=== PATIENT | male | born 1935 | race Caucasian/White ===

== ENCOUNTER 2018-05-01 13:56 | Outpatient (CLI) | payer MEDICARE, BC ==
--- NOTE | 2018-05-01 15:38 | RAD ---
LUMBAR SPINE 3 VIEWS: Date: 05/01/18 HISTORY: Spinal stenosis, low back pain, bilateral leg numbness. FINDINGS/IMPRESSION: Lateral views of the lumbar spine were obtained in neutral, flexion, and extension. Multilevel degenerative changes present. No compression fracture or subluxation seen. No significant change in alignment is noted on flexion or extension. POS: [facility]
--- NOTE | 2018-05-01 18:34 | MRI ---
MRI LUMBAR SPINE PRE AND POST CONTRAST: HISTORY: Spinal stenosis. Numbness of legs for several months. TECHNIQUE: Multiplanar, multisequence pre and post contrast enhanced MRI of the lumbar spine obtained. FINDINGS: Images demonstrate bilateral renal areas of cystic density, possibly representing renal cortical cyst s. Correlate with sonography. T12-L1: Unremarkable. L1-L2: Disk desiccation is seen. There is a broad-based disk bulge with bilateral facet and ligamen jhony flavum hypertrophy. This results in a minimal but not significant degree of central and lateral recess stenosis. The neural foramen are patent. L2-L3: Disk desiccation is seen. There is a broad-based disk bulge with bilateral severe facet and ligamentum flavum hypertrophy, resulting in moderate to severe central and lateral recess stenosis. Mild to moderate bilateral neural foraminal narrowing is seen. L3-L4: Disk desiccation is seen. There is a broad-based disk bulge with bilateral facet and ligamen jhony flavum hypertrophy. Laminotomy changes are seen at this level. There is a moderate degree of ce ntral and lateral recess stenosis due to the facet hypertrophy and ligamentum flavum hypertrophy, as well as the broad-based disk bulge. There is a fatty filum terminale. L4-L5: Disk desiccation is seen. There is a broad-based disk bulge with bilateral facet hypertrophy , resulting in a moderate degree of central and lateral recess stenosis. There is moderate bilateral neural foraminal narrowing seen, due to the facet hypertrophy. L5-S1: There is bilateral facet hypertrophy seen. Mild central and lateral recess stenosis is seen. Moderate bilateral neural foraminal narrowing is seen. IMPRESSION: L3 and L4 laminotomy changes. There is multilevel facet hypertrophy with L2-L3, L3-L4, and L4-L5 lida tral and lateral recess stenosis seen. POS: [facility]
== END 2018-05-01 13:57 | disposition home or self-care (01) ==
LOC: SCSMRI 13:56
PROVIDERS: ATTEND Neurological Surgery
DX: M48.061 Spinal stenosis, lumbar region without neurogenic claudication (principal); M47.896 Other spondylosis, lumbar region
CPT/HCPCS: 72100; 72158; 82565

== ENCOUNTER 2018-10-18 10:01 | Outpatient (CLI) | payer MEDICARE, BC ==
[2018-10-18 11:30] LABS: Hemoglobin 14.4 g/dL (14.0-18.0); Mean Corpuscular HGB CONC 32.7 g/dL (32.0-36.0); Mean Corpuscular Hemoglobin 29.7 pg (27.0-31.0); Mean Corpuscular Volume 90.8 fL (78.0-98.0); Mean Platelet Volume 7.5 fL (7.4-10.4); Platelet Count 201 thou/uL (130-400); RBC Distribution Width 12.4 % (11.5-14.5); Red Blood Cell (RBC) Count 4.85 mill/uL (4.70-6.10); White Blood Cell (WBC) Count 7.2 thou/uL (4.8-10.8)
[2018-10-18 11:36] LABS: INR-International Normal Ratio 1.1; PTT 32.8 SEC (22.9-36.1); Prothrombin Time 13.9 SEC (12.0-14.7)
[2018-10-18 11:39] LABS: Anion Gap 11 mmol/L (10-20); BUN (Urea Nitrogen) 22 mg/dL (8.4-25.7); Calc. Creatinine Clearance 0 mL/min (70-130); Calcium 10.5 mg/dL (7.8-10.44); Carbon Dioxide 26 mmol/L (23-31); Chloride 110 mmol/L (98-107); Estimated GFR-MDRD 59; Glucose 99 mg/dL (83-110); Potassium 4.3 mmol/L (3.5-5.1); Sodium 143 mmol/L (136-145)
--- NOTE | 2018-10-19 11:36 | EKG ---
Test Reason : Blood Pressure : / mmHG Vent. Rate : 052 BPM Atrial Rate : 052 BPM P-R Int : 198 ms QRS Dur : 092 ms QT Int : 416 ms P-R-T Axes : 009 -42 -05 degrees QTc Int : 386 ms Sinus bradycardia Left axis deviation Voltage criteria for left ventricular hypertrophy Abnormal ECG Confirmed by CHRISTOPHE CARRERO ([id number]) on 10/19/2018 11:36:07 AM Referred By: GUSTAVO Confirmed By:CHRISTOPHE CARRERO
== END 2018-10-18 10:02 | disposition home or self-care (01) ==
LOC: LABBT 10:01
PROVIDERS: ATTEND Neurological Surgery
DX: Z01.818 Encounter for other preprocedural examination (principal); M48.062 Spinal stenosis, lumbar region with neurogenic claudication
CPT/HCPCS: 80048; 85027; 85610; 85730; 93005; 93010

== ENCOUNTER 2018-10-24 05:39 | Inpatient (IN) | payer MEDICARE, BC ==
[2018-10-18 10:25] VITALS: BMI 26.3
--- NOTE | 2018-10-19 12:21 | HP ---
HISTORY OF PRESENT ILLNESS: Mr. Kemp is a very pleasant 83-year-old male, who reports recently moved to the area. He has had previous decompressive surgery in the lumbar spine. Reports to our office for evaluation of lumbar back pain as well as bilateral numbness in his feet and calves. He reports that his previous surgery was about 5 years ago in [place], which he had good success from. The patient states the pain has returned in the lumbar area and is similar to his pain previously. States it is the beltline pain and just below, it does not go down into his hips, thighs, or legs. The patient states that, several months ago, he started to have numbness which was in the balls of his feet, worse on the left than the right and has progressed up into his calves. The patient states that he is an active person. He fishes, hunts, regularly goes to fitness classes and exercise. However, he is worried that the numbness is going to cause him to have balance issues. The patient has had epidural steroid injections within the last 6 months, which gave him about a month of relief. He denies physical therapy, however, he does stretching and core exercises on his own. Numbness is worse down the balls of his feet, medial top of his foot and calves. He would describe numbness is equal in area on both legs. Denies diabetes, chemotherapy, or radiation. He is on lithium. REVIEW OF SYSTEMS: A 10-point review of systems has been completed and is negative other than stated in the above HPI. PAST MEDICAL HISTORY: Gout, hypertension. PAST SURGICAL HISTORY: Tonsillectomy, cataracts, and lumbar laminectomy in 2013. FAMILY HISTORY: Father is , diagnosed with heart disease. Mother is . SOCIAL HISTORY: The patient states that he uses alcohol and is sexually active. MEDICATIONS: 1. Atenolol. 2. Lisinopril. 3. Amlodipine. 4. Atorvastatin. 5. Aspirin 81 mg. 6. Calcium with vitamin D. 7. Fish oil. 8. Glucosamine. ALLERGIES: NO KNOWN DRUG ALLERGIES. PHYSICAL EXAMINATION: CONSTITUTIONAL: Well appearing, well nourished, alert. NEUROLOGIC: Mental status; oriented to time, place, person. Normal attention span and concentration. Speech, spontaneous and fluent. Comprehension intact. Content appropriate. Normal fund of knowledge. Cranial nerves, grossly intact. Motor exam; muscle strength normal in lower extremities. Muscle tone and bulk, normal in lower extremities. 5/5 bilateral strength in IP, KE, KF, DF, PF, EHL, no radiculopathy. Negative single leg raise. Rotation of bilateral hips normal. Nontender to palpation. Deep tendon reflex; 2+ patellar, 2+ Achilles. Sensory, decreased sensation, bilateral balls of feet, top of feet. Gait and station, sit to stand normal, normal gait. RESPIRATIONS: Normal work of breathing on room air. SKIN: No rashes or lesions on exposed skin. PSYCHIATRIC: Normal mood and affect. IMAGING STUDIES: MRI shows lateral recess stenosis of L5-S1, lateral recess and canal stenosis at L2-L3, L3-L4, L4-L5. Flexion-extension, no instability is noted on x-ray. EMG/nerve conduction, sensory, motor, polyneuropathy workup for causation is pending. 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 Dr. Lundberg has offered surgery. The patient has been consented. The patient states he understands risks and is willing to proceed with the surgery. Job ID: [id number]
[2018-10-24] MEDS ORDERED: Bupivacaine HCl 0.5%/Epinephrine 1:200,000/PF 30 ml Vial ONE (06:25)
[2018-10-24] MEDS ORDERED: Sodium Chloride 0.9% 20 ML ONE (06:25)
[2018-10-24] MEDS ORDERED: Thrombin 5000 UNITS/5 ML VIAL ONE ×2 (06:25→07:59)
[2018-10-24] MEDS ORDERED: Albumin 5% 500 ML ONE (06:30)
[2018-10-24] MEDS ORDERED: Fentanyl 100 MCG/2 ML VIAL ONE ×3 (07:07→14:26)
[2018-10-24] MEDS ORDERED: Rocuronium Bromide 10 MG/ML (10ML VIAL) ONE (11:04)
[2018-10-24] MEDS ORDERED: ePHEDrine 50 MG/ML VIAL ONE (11:04)
[2018-10-24] MEDS ORDERED: PROPOFOL 200 MG/20 ML VIAL ONE (11:04)
[2018-10-24] MEDS ORDERED: Ondansetron PF 4 MG/2 ML Vial ONE (11:04)
[2018-10-24] MEDS ORDERED: PHENYLEPHRINE-NS 100 MCG/ML 10 ML SYRINGE ONE (11:04)
[2018-10-24] MEDS ORDERED: Lidocaine 1% PF 5 ML VIAL ONE (11:04)
[2018-10-24] MEDS ORDERED: Dexamethasone 20 MG/5 ML VIAL ONE (11:04)
[2018-10-24] MEDS ORDERED: Glycopyrrolate 0.2 MG/ML 5 ML SYRINGE ONE (11:04)
[2018-10-24] MEDS ORDERED: Sodium Chloride 0.9% 10 ML ONE (11:28)
[2018-10-24] MEDS ORDERED: Acetaminophen/Codeine 30-300mg Tablet PO PRN ×2 (12:34)
[2018-10-24] MEDS ORDERED: Promethazine 25 MG TAB PO PRN (12:34)
[2018-10-24] MEDS ORDERED: Milk Of Magnesia 30 ML UDCUP PO PRN (12:34)
[2018-10-24] MEDS ORDERED: diphenhydrAMINE 50 MG/ML VIAL IVP PRN (12:34)
[2018-10-24] MEDS ORDERED: diphenhydrAMINE 25 MG CAP PO PRN (12:34)
[2018-10-24] MEDS ORDERED: Ondansetron PF 4 MG/2 ML Vial IVP PRN (12:34)
[2018-10-24] MEDS ORDERED: Acetaminophen 325 MG TAB PO PRN (12:34)
[2018-10-24] MEDS ORDERED: Promethazine HCl 25 MG/ML VIAL IM PRN ×2 (12:34→12:56)
[2018-10-24] MEDS ORDERED: Mag-Al 1200 mg/1200 mg/30 ML UDCUP PO PRN (12:34)
[2018-10-24] MEDS ORDERED: tiZANidine HCl 4 MG TAB PO PRN (12:34)
[2018-10-24] MEDS ORDERED: Bisacodyl 10 MG SUPP PR PRN (12:34)
[2018-10-24] MEDS ORDERED: Morphine 4 MG/ML VIAL SLOW IVP PRN (12:34)
[2018-10-24] MEDS ORDERED: Promethazine HCl 25 MG/ML VIAL SLOW IVP PRN (12:56)
[2018-10-24] MEDS ORDERED: PACU-Morphine 4MG/ML VIAL SLOW IVP PRN (12:56)
[2018-10-24] MEDS ORDERED: Ondansetron HCl/PF 4 MG/2 ML Vial IVP PRN (12:56)
[2018-10-24] MEDS ORDERED: Morphine Sulfate 2 MG/ML SYRINGE SLOW IVP PRN (12:56)
[2018-10-24] MEDS ORDERED: HYDROmorphone 2 MG/ML VIAL SLOW IVP PRN (12:56)
--- NOTE | 2018-10-24 15:46 | OP ---
DATE OF PROCEDURE: 10/24/2018 WEEKDAY BABYSITTER: Chandni Mojica PA-C. PREOPERATIVE INDICATION: Treat pain and prevent neurological deterioration. PREOPERATIVE DIAGNOSIS: Multilevel lumbar stenosis, recurrent, with neurogenic claudication. POSTOPERATIVE DIAGNOSIS: Multilevel lumbar stenosis, recurrent, with neurogenic claudication. OPERATIVE PROCEDURES: 1. Decompressive laminectomy with medial facetectomy and foraminotomy, L2-L3, L3-L4, and L4-5 and left L5-S1, all revision surgeries. 2. Operative microscope. PREOPERATIVE MEDICATION: Ancef 2 g IV. DRAIN NUMBER: Zero. DRAIN TYPE: None. DESCRIPTION OF PROCEDURE: The patient was brought to the operating room. General endotracheal anesthesia was induced. The patient was positioned prone with the chest and hips supported by gel-filled chest rolls. A lateral fluoro radiograph confirmed that the previous incision would give us access from L3 through L5. We marked out extensions to that incision superiorly and inferiorly. The lumbar skin was sterilely prepped and draped. We opened with a 10 blade knife and controlled bleeding with bipolar and monopolar cautery. We used monopolar cautery to dissect through subcutaneous tissues and scar to the thoracodorsal fascia. We incised the fascia in the midline and reflected the paraspinal muscles off the spinous process and lamina of L2, L3, L4, L5, and the sacrum. Interestingly, the previous surgeon left the L3 and L4 spinous processes, but these were no longer connected to the laminae. They were removed during our mobilization of the paraspinal muscles. Self-retaining retractors in place. We took a lateral fluoro radiograph to confirm the levels upon, which we were operating. We then used curettes to work away through scar tissue to identify the facet joints at L2-L3, L3-L4, L4-L5, and L5-S1. We identified the remnants of the laminae at L3 and L4 and the superior portion of L5. We used an angled curette to separate scar tissue from the undersurface of the bone. Using Kerrison rongeurs, we fashioned our laminectomy down the midline from L5 up to L2 pedicles and we widened our laminectomy defect using high-speed drill and a bur, curettes, and Kerrison rongeurs. On the left side, we performed a partial hemilaminectomy with medial facetectomy and foraminotomy at L5-S1, decompressing the S1 nerve root, and removing a ventral bone spur as well. We brought the operative microscope into the field. Under microscopic magnification using microsurgical techniques, we carefully widened each neural foramen until a marked ball probe could pass through it and out into the paraspinal space. At L3-L4 on the right side, the bone spur from the medial portion of the facet joint was densely adherent to the dura. We drilled the lateral to this connection and had a free floating piece of bone disconnected from the lamina and dissecting this off the dura, we found that the bone itself had eroded its way through the dura and left us with a large defect in the dura. This extended from the axilla of the L4 nerve root on the right towards the midline, but not reaching the midline. A bovine pericardial patch was brought into the field and we cut the patch to fit the dural defect. With a 6-0 Prolene and microsurgical techniques, we sewed in the patch in a watertight fashion. Valsalva was administered and there was no CSF egress. We then ensured that our decompression was adequate by probing each lateral recess and foramen with the ball probe and found no impingement. We irrigated copiously with bacitracin irrigation. We waxed the bone edges. We administered Valsalva maneuvers and saw no CSF egress. We reinforced our dural closure with DuraSeal tissue sealant after copious amounts of bacitracin irrigation. The tissue sealant solidified. We treated the wound with vancomycin powder and we closed in anatomical layers. We applied a sterile dressing. This was a clean case, no contamination. Job ID: [id number]
[2018-10-24] MEDS: CEFAZOLIN 2 GM in Premix Bag 1 BAG IVPB SCH ×2 (20:23→20:24)
[2018-10-24] MEDS: Sodium Chloride 0.9% 1,000 ML IV SCH (20:28)
[2018-10-24] MEDS ORDERED: Atorvastatin Calcium 20 MG TAB PO SCH (21:00)
[2018-10-25] MEDS: Sodium Chloride 0.9% 1,000 ML IV SCH (05:52)
[2018-10-25] MEDS ORDERED: CEFAZOLIN 2 GM in Premix Bag 1 BAG IVPB SCH (07:30)
[2018-10-25] MEDS ORDERED: VITAMIN D2 PO SCH (09:00)
[2018-10-25] MEDS ORDERED: [UNRECOGNIZED DRUG - OTHER] PO SCH (09:00)
[2018-10-25] MEDS ORDERED: Multivit, Therapeutic 1 TAB PO SCH (09:00)
[2018-10-25] MEDS ORDERED: [UNRECOGNIZED DRUG - OTHER] PO SCH (09:00)
[2018-10-25] MEDS ORDERED: CALCIUM CITRATE PO SCH (09:00)
[2018-10-25] MEDS ORDERED: Atenolol 50 MG TAB PO SCH (09:00)
[2018-10-25] MEDS ORDERED: Lisinopril 20 MG TAB PO SCH (09:00)
[2018-10-25] MEDS ORDERED: Amlodipine 5 MG TAB PO SCH (09:00)
[2018-10-25] MEDS ORDERED: Calcium Carbonate + Vit D 1 TAB PO SCH (09:00)
--- NOTE | 2018-10-25 09:03 | PRG ---
DATE OF SERVICE: 10/25/2018 Mr. Kemp is seen in his hospital room this morning. He had some nausea after his anesthesia. He has been lying flat in bed due to the dural repair that was needed, but he has no pain in the back or legs. There is no fever recorded among the vital signs. Neurological function is good in the lower extremities. Our plan is to begin bringing the head of bed up over the next hour or two until he is seated and eating. Once he has had his breakfast, he can stand with assistance and if stable standing, then he can begin to ambulate with Physical Therapy and nursing staff. When he becomes safe for his activities of daily living including getting in and out of bed, dressing, using the restroom, then he can be discharged home. He can shower tomorrow. No dressing needs to be on the wound unless there is drainage. Job ID: [id number] MTDD
[2018-10-25 15:37] VITALS: BP 130/80; TEMP 98.7
== END 2018-10-25 17:15 | disposition home or self-care (01) | DRG 517 ==
LOC: SDC 05:39 → SURG A 17:51
PROVIDERS: ADMIT Neurological Surgery; ATTEND Neurological Surgery
PROC: 01NB0ZZ Release Lumbar Nerve, Open Approach (ICD-10-PCS; principal; 2018-10-24)
DX: M48.062 Spinal stenosis, lumbar region with neurogenic claudication (principal); I10 Essential (primary) hypertension; M47.816 Spondylosis without myelopathy or radiculopathy, lumbar region; M10.9 Gout, unspecified; Z98.42 Cataract extraction status, left eye; Z98.41 Cataract extraction status, right eye
CPT/HCPCS: 76000; J0670; J0690; J1100; J2001; J2405; J2704; J3010; J3370; J3490; P9045

== ENCOUNTER 2020-02-20 11:16 | Outpatient (CLI) | payer MEDICARE, BC ==
--- NOTE | 2020-02-20 11:53 | RAD ---
EXAM: XR Lumbar Spine Min 4 View PROVIDED CLINICAL HISTORY: Lower back pain for several months. History of back surgery 15 months ago. COMPARISON: 05/01/2018 FINDINGS: There are 5 nonrib-bearing lumbar-type vertebral bodies. Laminectomy defects are seen extending from the L3 vertebral body to L5-S1 level. Multilevel osteophytes are present. There is narrowing of the intervertebral disc spaces at all levels similar to prior exam. Vertebral body heights are within nor mal limits. No fracture or subluxation is identified. Vascular calcifications are again seen in the abdominal aorta. IMPRESSION: Postoperative and degenerative changes lumbar spine.
== END 2020-02-20 11:17 | disposition home or self-care (01) ==
LOC: SCSRAD 11:16
PROVIDERS: ATTEND Neurological Surgery
DX: M54.5 Low back pain (principal); M47.816 Spondylosis without myelopathy or radiculopathy, lumbar region; Z98.890 Other specified postprocedural states
CPT/HCPCS: 72110

== ENCOUNTER 2021-03-30 10:12 | Outpatient (CLI) | payer MEDICARE, BC | END 2021-03-30 10:13 | disposition home or self-care (01) | LOC: NM 10:12 | PROVIDERS: ATTEND Otolaryngology Plastic Surgery within the Head & Neck | DX: E21.3 Hyperparathyroidism, unspecified (principal) | CPT/HCPCS: 78072; A9500 ==

== ENCOUNTER 2021-04-14 09:44 | Outpatient (CLI) | payer MEDICARE, BC | END 2021-04-14 09:45 | disposition home or self-care (01) | LOC: BICCT 09:44 | PROVIDERS: ATTEND Otolaryngology Plastic Surgery within the Head & Neck | DX: E21.3 Hyperparathyroidism, unspecified (principal) | CPT/HCPCS: 70492; 82565 ==

== ENCOUNTER 2022-10-13 08:51 | Outpatient (CLI) | payer MEDICARE, BC | END 2022-10-13 08:52 | disposition home or self-care (01) | LOC: SCSRAD 08:51 | PROVIDERS: ATTEND Neurological Surgery | DX: M47.26 Other spondylosis with radiculopathy, lumbar region (principal); Z98.890 Other specified postprocedural states | CPT/HCPCS: 72100; 72110 ==